=== PATIENT | female | born 1955 | race Hispanic/Latino ===

== ENCOUNTER → 2018-11-20 | Outpatient (CLI) | payer OTHER | END | disposition home or self-care (01) | LOC: RAH 15:20 | PROVIDERS: ATTEND Internal Medicine | DX: E04.9 Nontoxic goiter, unspecified (principal); E03.9 Hypothyroidism, unspecified | CPT/HCPCS: 76536 ==

== ENCOUNTER 2020-12-21 11:02 | Day surgery (SDC) | payer OTHER ==
[2020-12-20 11:47] LABS: EOSINOPHILS % (AUTO) 1.9 % (0.0-8.0); HEMATOCRIT 45.3 % (36-48); LYMPHOCYTES % (AUTO) 31.8 % (21.0-51.0); MEAN CORPUSCULAR HEMOGLOBIN 30.4 pg (27.0-33.0); MEAN CORPUSCULAR HGB CONC 32.5 g/dL (32.0-36.0); MEAN CORPUSCULAR VOLUME 93.8 fL (79-99); MONOCYTES % (AUTO) 9.3 % (3.0-13.0); NEUTROPHILS % (AUTO) 55.8 % (40.0-77.0); PLATELET COUNT (AUTO) 190 K/uL (130-400); RED BLOOD CELL COUNT(AUTO) 4.83 MIL/uL (4.00-5.50); RED CELL DISTRIBUTION WIDTH 12.5 % (11.0-15.5); WHITE BLOOD COUNT (AUTO) 5.9 K/uL (4.8-10.8)
[2020-12-21] VITALS (19 sets, daily range): BP systolic 15–186; BP diastolic 68–86
[~2020-12-21] VITALS: Ht 182.9 cm; Wt 111.5 kg
[~2020-12-21 11:02] MED LIST: LACTATED RINGERS 1000ML 1,000 ML IV SCH; LEVO150 PO
[2020-12-21] MEDS ORDERED: PROPOFOL 10 MG/ML 20ML VIAL IV ONE (13:56)
[2020-12-21] MEDS ORDERED: GLYCOPYRROLATE 1 MG/5 ML SYRINGE ONE (13:56)
[2020-12-21] MEDS ORDERED: DEXAMETHASONE SOD PHOSPHATE 10MG/ML 1ML VIAL ONE (13:56)
[2020-12-21] MEDS ORDERED: LIDOCAINE PF 100MG/5ML (2%) SYRINGE 5ML ONE (13:56)
[2020-12-21] MEDS ORDERED: NEOSTIGMINE 5MG/5ML SYR IV ONE (13:56)
[2020-12-21] MEDS ORDERED: SUCCINYLCHOLINE 200MG/10ML SYR ONE (13:56)
[2020-12-21] MEDS ORDERED: ONDANSETRON 4MG INJ ONE (13:56)
[2020-12-21] MEDS ORDERED: MIDAZOLAM HCL 1 MG/ML 2ML VIAL ONE (13:56)
[2020-12-21] MEDS ORDERED: ROCURONIUM 10MG/1ML SYR 10 MG/ML ML ONE (13:57)
[2020-12-21] MEDS ORDERED: FENTANYL CITRATE PF 50 MCG/1 ML 2ML VIAL ONE (13:57)
[2020-12-21] MEDS ORDERED: HYDRALAZINE 20MG/ML VIAL ONE (15:36)
== END 2020-12-21 17:25 | disposition home or self-care (01) ==
LOC: SUH 11:02 → DAH 11:02 → SUH 17:25
PROVIDERS: ATTEND Specialist
DX: R87.618 Other abnormal cytological findings on specimens from cervix uteri (principal); Z20.822 Contact with and (suspected) exposure to COVID-19; N95.0 Postmenopausal bleeding; N85.4 Malposition of uterus; E03.9 Hypothyroidism, unspecified; Z98.51 Tubal ligation status; Z98.890 Other specified postprocedural states; Z79.899 Other long term (current) drug therapy
CPT/HCPCS: 36415; 58120; 85025; 87635; A4215; A4221; A4222; A4223; A4351; A4600; A4663; A4930; A6260; C9803; J0330; J0360; J1100; J2001; J2250; J2405; J2704; J2710; J3010; J3490; J7120 ×2